=== PATIENT | male | born 1965 | race Caucasian/White ===

== ENCOUNTER → 2024-01-03 15:20 | Outpatient (REF) | payer OTHER, SELFPAY | LOC: HWRAD 15:20 | PROVIDERS: ATTENDING PHYSICIAN Nurse Practitioner | DX: R59.9 Enlarged lymph nodes, unspecified (principal) | CPT/HCPCS: 76536 ==

== ENCOUNTER → 2024-01-24 10:51 | Outpatient (REF) | payer OTHER, SELFPAY | LOC: HWRAD 10:51 | PROVIDERS: ATTENDING PHYSICIAN Nurse Practitioner | DX: R79.89 Other specified abnormal findings of blood chemistry (principal) | CPT/HCPCS: 76700 ==